=== PATIENT | male | born 1985 | race Caucasian/White ===

== ENCOUNTER 2019-08-22 18:06 | Emergency (ER) | payer MEDICAID ==
[2019-08-22 18:43] VITALS: BP 129/83
--- NOTE | 2019-08-22 19:49 | UC ---
Hand/Wrist HPI - HPI Summary HPI Summary: 33-year-old male who has swelling over the dorsum of his right hand. Mild bruising is present. He denies any injury. Noticed it today when he washed his hands. - History Of Current Complaint Chief Complaint: UCUpperExtremity Stated Complaint: RIGHT HAND INJURY Time Seen by Provider: 08/22/19 18:46 Hx Obtained From: Patient ?: No Onset/Duration: Sudden Onset Severity Initially: Mild Severity Currently: Mild Pain Intensity: 2 Character Of Pain: Dull, Aching Aggravating Factor(s): Movement, Flexion, Extension - Pain in that affected area with flexion extension of his fourth and fifth fingers. Alleviating Factor(s): Nothing Associated Signs And Symptoms: Positive: Swelling, Bruising - Allergies/Home Medications Allergies/Adverse Reactions: Allergies Allergy/AdvReac Type Severity Reaction Status Date / Time No Known Allergies Allergy Verified 08/22/19 18:40 Home Medications: Home Medications NK [No Home Medications Reported] 08/22/19 [History Confirmed 08/22/19] PMH/Surg Hx/FS Hx/Imm Hx Previously Healthy: Yes - Surgical History Surgical History: None - Family History Known Family History: Positive: Non-Contributory - Social History Lives: With Family Alcohol Use: None Substance Use Type: Marijuana Smoking Status (MU): Never Smoked Tobacco Review of Systems All Other Systems Reviewed And Are Negative: Yes Skin: Positive: Bruising, Other - Minimal Bruising and I'll swelling over the dorsum of his right hand. Musculoskeletal: Positive: Other: - Pain on palpation of the dorsum of his right hand. Is Patient Immunocompromised?: No Physical Exam Triage Information Reviewed: Yes Appearance: Well-Appearing, No Pain Distress, Well-Nourished Vital Signs: Initial Vital Signs Temp 98.8 F 08/22/19 18:40 Pulse 98 08/22/19 18:40 Resp 16 08/22/19 18:40 BP 129/83 08/22/19 18:40 Pulse Ox 99 08/22/19 18:40 Vital Signs Reviewed: Yes Musculoskeletal: Positive: Strength Intact, ROM Intact, Other: - Good peripheral pulses, neuro sensation and capillary refill. Good finger strength with flexion extension against resistance. Wrist is not tender. Patient has very mild bruising with swelling over the dorsum of his right hand. Neurological Exam: Normal Psychological Exam: Normal Skin: Positive: Other - See above notes. Hand/Wrist Course/Dx - Course Course Of Treatment: Hand x-ray:FINDINGS: Bones/joints: No acute fracture or dislocation. No aggressive osseous lesion Soft tissues: Normal. No radiopaque foreign body. IMPRESSION: No acute findings. Read by [facility]. Nick bandage was applied to help with swelling. He is to elevate as much as possible and apply ice. - Differential Dx/Diagnosis Provider Diagnosis: Contusion, hand Discharge ED - Sign-Out/Discharge Documenting (check all that apply): Patient Departure All imaging exams completed and their final reports reviewed: Yes - Discharge Plan Condition: Good Disposition: HOME Patient Education Materials: Contusion in Adults (ED) Referrals: Karla Hunter PA [Primary Care Provider] - Lynette Adhikari MD [Medical Doctor] - Additional Instructions: Elevate as much as possible, continue applying ice intermittently over the next day or 2. Tylenol for pain and may alternate that with Advil. Follow-up with the orthopedist on Tuesday if continued swelling or continued pain. - Billing Disposition and Condition Condition: GOOD Disposition: Home
== END 2019-08-22 19:59 | disposition home or self-care (01) ==
LOC: UCCORT 18:06
DX: S60.221A Contusion of right hand, initial encounter (principal); X58.XXXA Exposure to other specified factors, initial encounter; Y92.9 Unspecified place or not applicable
CPT/HCPCS: 99202; G0463